=== PATIENT | male | born 1975 | race Caucasian/White ===

== ENCOUNTER 2025-10-05 00:42 | Outpatient (CLI) | payer OTHER, SELFPAY ==
[2025-10-05 12:09] LABS: HCT 46.2 % (40.0-50.0); HGB 16.3 g/dL (13.5-17.5); MCH 32.8 pg (27.0-33.0); MCHC 35.3 % (32.0-36.0); MCV 93 fL (80-95); MPV 11.0 fL (8.0-11.0); Platelet Count 211 10^3/uL (130-400); RBC 4.97 10^6/uL (4.36-5.78); RDW 12.1 % (11.8-14.1); RDW-SD 41.4 fL; WBC 6.84 10^3/uL (4.4-10.8)
== END 2025-10-05 00:43 | disposition home or self-care (01) ==
LOC: LBO 00:42 → LBN 11:59
PROVIDERS: PCP Family Medicine; Visit Provider Student in an Organized Health Care Education/Training Program
DX: M16.12 Unilateral primary osteoarthritis, left hip (principal); Z01.818 Encounter for other preprocedural examination
CPT/HCPCS: 80048; 85027

== ENCOUNTER 2025-10-05 11:19 | Outpatient (CLI) | payer OTHER, SELFPAY ==
--- NOTE | 2025-10-05 09:00 | DI.RAD_ITS ---
Exam(s) XR PELVIS AP EXAM: XR PELVIS AP CLINICAL HISTORY: PRE OP L PRAMOD. TECHNIQUE: 2D digital imaging was performed. Images were obtained. COMPARISON: RF XR HIP MIN 2V LT from 09/15/2024 FINDINGS: BONES: No acute fracture is present. No bony destructive lesion is seen. JOINTS: No dislocation present. In the left hip, there is marked asymmetric joint space narrowing particularly superiorly. Osteophytes are spine also present on the acetabulum and the femoral head. In the right hip, there is asymmetric joint space narrowing medially with small osteophytes also present. The sacroiliac joints are well maintained without evidence of ankylosis. The symphysis pubis is unremarkable. SOFT TISSUE: Normal. IMPRESSION: Marked osteoarthritis of the left hip and moderate osteoarthritis of the right hip. DATA REPOSITORY: RADIATION DOSE DELIVERED:
== END 2025-10-05 11:20 | disposition home or self-care (01) ==
LOC: DIORS 11:19
PROVIDERS: PCP Family Medicine; Visit Provider Physician Assistant
DX: M16.12 Unilateral primary osteoarthritis, left hip (principal)
CPT/HCPCS: 72170

== ENCOUNTER 2025-10-06 07:12 | Day surgery (SDC) | payer OTHER, SELFPAY ==
[2025-10-06] VITALS (22 sets, daily range): BP systolic 118–144; BP diastolic 71–87; PULSE 67–90; RESP 12–27; TEMP 36.1–37.1; O2SAT 93–98; BMI 36.3
--- NOTE | 2025-10-06 07:07 | W.PM.DSUDISC ---
Date of service: 10/06/25 Discharge Plan Disposition Patient Disposition: Home Condition: Good Discharge Details Reason For Visit: Left hip DJD Attending Provider: Curry Valdez Primary Care Provider: Jeff Rios Home Meds and New Rx's Prescriptions: New celecoxib [Celebrex] 200 mg capsule 200 mg PO BID PRNQty: 60 0RF Rx Instructions: Take one tablet twice daily for pain and inflammation aspirin 81 mg tablet,delayed release (DR/EC) 81 mg PO BID 30 Days Qty: 60 0RF acetaminophen 500 mg tablet 1,000 mg PO Q8H PRN Qty: 90 0RF Rx Instructions: Take two tablets up to every 8 hours as needed for pain pantoprazole 40 mg tablet,delayed release (DR/EC) 40 mg PO DAILY Qty: 14 0RF Rx Instructions: Take one tablet once daily dexamethasone 4 mg tablet 4 mg PO DAILY Qty: 2 0RF Rx Instructions: Take one tablet once daily for two days docusate sodium [Colace] 100 mg capsule 100 mg PO BID Qty: 28 0RF oxycodone 5 mg tablet 5 mg PO Q6H PRNQty: 6 0RF Rx Instructions: Take one tablet up to every 6 hours as needed for severe postoperative pain Discharge Instructions Additional Instructions: Total Hip Discharge Instructions Activity: The most important activity is to walk. You should try to take short walks a few times a day. You have no restrictions on movement or positioning, but do not try to force what you do. You will find some stiffness and weakness with hip flexion (lifting your knee). Do not try to strengthen this too early, continue to practice walking and stairs and this will come. - Outpatient physical therapy can be helpful to help return you to a normal gait and improve your flexibility and strength. This can start around 2 weeks. For some patients, it?s not necessary. Usually this is determined at the time of discharge or at the first post-operative visit. - You should wear the [place] hose on both legs for 2 weeks. Dressing: Keep the surgical dressing in place for at least one week. After the first week it may be removed and replace with light gauze and tape or nothing. It may get wet after 3 days but avoid soaking the dressing. If it gets wet, just lightly pat dry. It is important to always keep some gauze between skin folds, especially when you are sitting. Spend some time with the wound exposed when you are lying flat as the incision does wrinkle onto itself. Medications: - You should take Tylenol and an anti-inflammatory Celebrex as your primary pain control medications. If the Celebrex is too expensive or not covered, please call the office for another alternative (Advil/Ibuprofen or Naproxen/Aleve). - You have been prescribed a stronger pain medication Oxycodone for breakthrough pain, take as needed as prescribed. - You have also been prescribed a stomach acid reduction agent Pantoprozole to help reduce stomach acid and reflux. - You have also been prescribed Decadron to help with post-operative nausea and pain. You will take this for two days starting tomorrow. - You will be taking Aspirin 81mg twice a day for DVT prevention unless instructed otherwise. - If you have constipation you should take Colace (which has been prescribed) or Miralax (which is available [id number]). It takes most people 3-4 days to have a bowel movement. Follow-up: 2 weeks If you have any acute concerns or questions, please do not hesitate to contact the office at [phone]. You may contact Dr. Valdez with any questions after hours through the hospital at [phone] or on his cell phone at [phone]. Stand Alone Forms: Anesthesia Discharge Inst., Blake Salomon (U), Portal Information Referrals: Curry Valdez MD [ [facility] STAFF PHYSICIAN, Orthopaedic Surgical] - 10/19/25 11:15 am Equipment/Supplies: Walker Activity:: Elevate Remove Dressings/Wound Care:: Do Not Remove Shower/Bathe:: Cover Diet:: As Tolerated Discharge Orders Discharge Orders: Discharge Order (Routine); Ordered 10/06/25 Ordered By: Kimber Lopez
[2025-10-06] MEDS: Celecoxib 200 MG CAP 400 MG PO (07:48)
[2025-10-06] MEDS: Acetaminophen 500 MG TAB 1000 MG PO (07:49)
[2025-10-06] MEDS: Lactated Ringers 1,000 ML 80 ML IV (08:00)
--- NOTE | 2025-10-06 08:32 | W.ANESPRE ---
General Info Date of Service Date Performed: 10/06/25 Height: 6 ft Weight: 121.5 kg Body Mass Index (BMI): 36.3 Surgical Procedure: Operation Date: 10/06/25 09:05 Proposed Procedure Side Surgeon p Hip Total Hip Anterior Left Curry Valdez MD Meds Allergies and Home Medications Allergies Allergy/AdvReac Type Severity Reaction Status Date / Time No Known Allergies Allergy Verified 10/06/25 07:43 Home Medication ?Medication ?Instructions ?Recorded acetaminophen 500 mg tablet 1,000 mg (2 x 500 mg) PO Q8H PRN 10/06/25 pain #90 tabs aspirin 81 mg tablet,delayed 81 mg PO BID 30 days #60 tabs 10/06/25 release celecoxib 200 mg capsule (Celebrex) 200 mg PO BID PRN #60 caps 10/06/25 dexamethasone 4 mg tablet 4 mg PO DAILY #2 tabs 10/06/25 docusate sodium 100 mg capsule 100 mg PO BID #28 caps 10/06/25 (Colace) oxycodone 5 mg tablet 5 mg PO Q6H PRN #6 tabs 10/06/25 pantoprazole 40 mg tablet,delayed 40 mg PO DAILY #14 tabs 10/06/25 release Current Visit Medications: Current Medications Generic Name Dose Route Start Last Admin Trade Name Freq PRN Reason Stop Dose Admin Acetaminophen 1,000 mg 10/06/25 06:00 10/06/25 07:49 Acetaminophen 500 Mg Tab PO 10/06/25 23:59 1,000 mg PREOP JAIDEN Administration Celecoxib 400 mg 10/06/25 06:00 10/06/25 07:48 Celecoxib 200 Mg Cap PO 10/06/25 23:59 400 mg PREOP JAIDEN Administration Hydromorphone HCl 0.5 mg 10/06/25 07:05 Hydromorphone 2 Mg/Ml Syr IVP 11/05/25 07:04 Q2H PRN PRN Ringer's Solution 1,000 mls @ 80 mls/hr 10/06/25 06:00 10/06/25 08:00 IV 10/06/25 23:59 80 mls/hr INFUSION JAIDEN Administration Cefazolin Sodium/Dextrose 2 gm in 50 mls @ 100 mls/hr 10/06/25 06:00 Ancef Duplex IVPB 10/06/25 23:59 PREOP AJIDEN Tranexamic Acid/Sodium Chloride 1,000 mg in 100 mls @ 600 mls/hr 10/06/25 06:00 IVPB 10/06/25 23:59 PREOP JAIDEN Cefazolin Sodium/Dextrose 1 gm in 50 mls @ 100 mls/hr 10/06/25 08:00 Ancef Duplex IVPB 10/07/25 00:29 Q8H JAIDEN Oxycodone HCl 0 mg 10/06/25 07:05 Oxycodone 5 Mg Tab PO 11/05/25 07:04 Q3H PRN PRN Pain Sodium Chloride 0 ml 10/06/25 06:00 Normal Saline Flush 10 Ml Syr IV 10/06/25 23:59 PRN PRN Sodium Chloride 0 ml 10/06/25 06:00 Normal Saline 10 Ml Vial IJ 10/06/25 23:59 DIRECTED PRN Sterile Water 0 ml 10/06/25 06:00 Water,Injection,Sterile 10 Ml Vial IJ 10/06/25 23:59 DIRECTED PRN Tranexamic Acid 1,300 mg 10/06/25 07:05 Tranexamic Acid 650 Mg Tab PO 11/05/25 07:04 ONCE PRN postoperative PFSH Active Problems Active Problems: Problem Status Onset Code Trochanteric bursitis, left hip Acute M70.62 Osteoarthritis of left hip Chronic M16.12 CÉSAR (obstructive sleep apnea) Chronic G47.33 Obesity Chronic E66.9 GERD (gastroesophageal reflux disease) Chronic K21.9 Surgical History Surgical History History of vasectomy Tobacco Smoking/Tobacco Use Status: Never Passive smoking exposure: No Alcohol Alcohol Intake: current Alcohol intake frequency: 0-2 drinks per day Alcohol type: beer Substance Use Substance use: Never Substance use type: does not use Details: 10/05/25 - drank a couple of beers Vital Signs and Lab Results Vital Signs Most Recent Vital Signs in EMR: Most Recent Vital Signs Temp Pulse Resp BP Pulse Ox 36.7 C 76 18 131/84 98 10/06/25 07:34 10/06/25 07:34 10/06/25 07:34 10/06/25 07:34 10/06/25 07:34 Lab Results Complete Blood Count: WBC, (4.4-10.8) 6.84 10^3/uL 12/15/25, 09:35 RBC, (4.36-5.78) 4.97 10^6/uL 10/05/25, 09:35 Hgb, (13.5-17.5) 16.3 g/dL 10/05/25, 09:35 Hct, (40.0-50.0) 46.2 % 10/05/25, 09:35 Plt Count, (130-400) 211 10^3/uL 10/05/25, 09:35 Anesthesia Assessment and Plan Anesthesia History Personal History: No History of Anesthesia Complications Family History: No Family History of Anesthesia Complications Exercise Tolerance Exercise Tolerance: Metabolic Equivalents>4 Pertinent Negatives Pertinent Negatives: No Major Cardiovascular Symptoms or Complaints, No Major Pulmonary Symptoms or Complaints and No History of CVA/TIA Cardiac & Pulmonary Exam Cardiac Exam: Normal S1/S2 Heart Sounds Pulmonary Exam: Clear Bilateral Breath Sounds Implantable Cardiac Device Does patient have a Pacemaker or an ICD?: No Airway Exam Known Difficult Airway: No Mallampati Class: 3 Mouth Opening: Normal (> 3cm) Thyromental Distance: Greater than 3 cm Neck Range of Motion: Full ROM Neck Circumference: Normal Teeth Condition: Normal Dentition ASA Classification ASA Score: ASA 2 Emergency Case?: No NPO Status NPO Status: NPO Clears >2 hours, Solids >8 hours Anesthesia Plan Resuscitation Status: Full Code Anesthesia Technique: Spinal Anesthesia Airway Planned: Natural Airway Monitors Used: Standard Monitors
[2025-10-06] MEDS: ceFAZolin 2 GM/50 ML BAG IVPB (09:00)
--- NOTE | 2025-10-06 09:09 | ROE_ITS ---
Operative Note Operative Note PRE-OP DIAGNOSIS: Left Hip Osteoarthritis POST-OP DIAGNOSIS: same PROCEDURE: Left Anterior Total Hip Arthroplasty with Intraoperative Navigation SURGEON: Curry Valdez INDUSTRIAL EQUIPMENT MECHANIC: Kimber Lopez ANESTHESIA TYPE: Spinal Refer to Anesthesia Record ESTIMATED BLOOD LOSS: 200 PATHOLOGY: none sent TOURNIQUET TIME: 0 COMPLICATIONS: None Patient was transported to: PACU Patient's condition: stable Implants: 1. Depuy [place] Acetabular Component, 56mm 2. Depuy Acetabular Liner, 19x38an 3. Depuy Actis High Offset Collared Femoral Stem, Size 6 4. Depuy Altrx Ceramic Femoral Head, Size 36+5mm Indications: I have seen Leo in clinic for symptoms of hip arthritis, confirmed with radiographic findings. Leo has exhausted nonoperative methods and was having significant limitations in daily function and desired better function and less pain. I discussed the technical details of a hip replacement. I explained the risks of the procedure to include, but not limited to, bleeding, infection, pain, stiffness, fracture, damage to nerves and vessels, damage to muscles and tendons, loosening, instability, leg length inequality, need for repeat procedure, blood clot and cardiopulmonary demise. Despite these risks, Leo elected to proceed. Findings: There was significant signs of arthritis throughout the hip. Procedure Description: Leo was greeted in the preoperative holding area where the correct side was identified and marked. The consent was reviewed with the patient and signed. The history and physical was updated. All questions were answered. He was taken back to the operating room. A spinal anesthestic was then administered. The feet were wrapped with cast padding and Coban and then placed into the boot liners and then into the boots. Care was taken to protect the sk in and make sure the heels were fully down and the boots were stable. The patient was then positioned onto the HANA table. Both legs were held in a neutral position. SCDs were applied. The patient was then slid down onto a peroneal post. Prophylactic antibiotics in the form of Cefazolin were administered. 1g of Tranxemic Acid was given intravenously within 30 minutes of incision. The left leg was then prepped with Chloraprep and draped in a standard fashion. A second prep with Chloraprep was performed prior to placement of a shower-curtain type drape with Iodine impregnated skin prot ection. A timeout to confirm correct identity, side and site, procedure, allergies, anesthesia, and medical concerns was performed. An obliquely oriented incision was made starting lateral to the ASIS and running distal over the Tensor Fascia Melina (TFL) muscle belly toward the fibular head, approximately 10cm. The skin and soft tissue was dissected sharply, through Ruthy?s fascia, and to the fascia of the TFL. With the fascia and superior border of the IT band identified, the fascia was incised with a new knife just above any perforators from the IT band. The TFL muscle belly was bluntly dissected away from the fascia and moved laterally. The fat between TFL and rectus was identified to ensure the dissection was not within the TFL. Blunt dissection created space between abductors and the capsule and retractor was placed over the lateral femoral neck. The fibers of the rectus femoris tendon were identified and these were freed from the anterior capsule. A second cobra retractor was placed around the medial femoral neck. The TFL was further retracted laterally to show the deep fascia. Careful dissection through this layer identified three main crossing vessels of the lateral femoral circumflex. These were cauterized in multiple locations and then cut without any noticeable bleeding. The TFL was further released bluntly from the deep fascia to expose anterior hip capsule and fat The soft tissue orthopaedic retractor was then placed beneath the TFL and against sartorius and medial soft tissues to protect and retract the soft tissues. A T-capsulotomy was then performed starting at the superior lateral acetabulum and moving distally to the intertrochanteric ridge. These capsular flaps were tagged with a No. 1 Vicryl and elevated from within. The capsular flaps were released to the shoulder of the lateral neck and to the lesser trochanter to give excellent visualization of the proximal femur. A neck osteotomy was performed using an oscillating saw based on preoperative templates. This cut started in the shoulder and of the lateral neck and exited medially. The saw was at all times directed medially to avoid injury to the greater trochanter. Gross traction was applied to the leg and the osteotomy opened. The femoral head was removed with a corkscrew, making sure to protect the TFL on its exit. Traction was released after head removal. This was measured on the back table to determine the starting reamer size. Portions of the rectus obscuring visualization were minimally elevated off the superior acetabulum. An anterior retractor was placed over the anterior wall between capsule and labrum and attached to the Gripper retraction system. The femur was rotated to 90 degrees and medial capsule was fully released until the lesser trochanter was palpable and visible; the femur was returned to 30 degrees. A posterior retractor was placed similarly between capsule and labrum. This provided excellent visualization. The contents of the cotyloid fossa were removed with electrocautery and the labrum was removed with a knife. There was a notable floor osteophyte. There was significant chondromalacia of the superior acetabulum. Acetabular reaming began with a 51mm reamer. This first reaming was directed anterior to posterior and medial to get down to the true floor. This was inspected and reamed until the true floor was reached. The anterior retractor was then released and entry and exit was provided by traction on the capsular flaps. I then reamed sequentially up to a 56mm reamer where good fit was obtained. The larger reamers were oriented based on anatomical reference of the anterior and lateral bah to ensure proper abduction and anteversion. Positioning and size was confirmed with the fluoroscopy. A 56mm Depuy [place] acetabular component was selected. The acetabulum was reamed around the periphery with the selected acetabular size to prevent a rim fit. The deep tissues were irrigated. The acetabular component was then impacted in a position of about 40-45 degrees of abduction and 15-20 degrees of anteversion, using the patient?s anatomy as the ultimate landmark. Fluoroscopy was used to confirm this. There was excellent engineer of system development of the acetabular component and the inserting handle was removed. The acetabular liner, Depuy [id number] polyethylene liner, was inserted and lined up with the tines of the acetabular component. There was no soft tissue interposition. The liner was then impacted into position and confirmed to be well-seated. A portion of the jose-articular cocktail was then injected around the acetabulum into the capsule and periosteum. This cocktail consisted of 123mg of Ropivacaine, 0.25mg of Epinephrine, 0.04mg of Clonidine, and 15mg of Ketorolac, diluted to 50cc. The leg was rotated to 120 degrees. Any remaining medial capsule was released until the lesser trochanter was easily palpable. A retractor was placed medially. The lateral capsule was further released into the shoulder to allow access to the greater trochanter. A Yadav retractor was placed over the greater trochanter which allowed the trochanter to flip in front of the capsule for excellent exposure. The leg was brought down into maximal extension and 20 degrees of adduction while ensuring there was no impingement on the acetabulum. Any remnant capsule within the trochanter was released. Piriformis and obturator externis were identified and protected. There was excellent access to the proximal femur. The lateral neck remnant was removed with a rongeur. A blunt canal probe was used to identify the canal and trajectory for later broaching. A box osteotome initiated the broach course. A small curved rasp and a curved curette were used to work laterally. Broaching then began with a starter Actis broach. This was inserted manually around the trochanter and into the canal before mallet blows. The broach was seated to a few millimeters below the cut level based on the neck cut and the preoperative template. Sequential broaching was continued with the [employer] pneumatic broaching device until a tight fit was obtained with good rotational control of the femur. A trial high offset neck was inserted along with a +5 trial head. The leg was brought out of extension and adduction and then reduced with traction and internal rotation. The leg was stable anteriorly in a position of 30 degrees of extension and 90 degrees of external rotation. Fluoroscopy was used to ensure there was no fracture and the stem was seated well. Leg lengths were checked with an AP pelvis and pelvic reference points. LIFT12 navigation system was used to confirm appropriate positioning and leg length and offset. Once content with the desired offset and leg lengths, the leg was b rought back into extension, external rotation and adduction. The periosteum and surrounding tissue was injected with remaining portion of the jose-articular cocktail. The proximal femur was irrigated as well as the deep tissues. The Depuy Actis High Offset collared stem, size 6, was then manually inserted into the proximal femur making sure to control rotation. It was then malleted into position with light blows, giving breaks to allow bone expansion and decrease risk of fracture. The selected Depuy Altrx Ceramic Head, size 36+5mm, was then placed onto the clean and dry trunnion and secured with impaction onto the tapered fit. The leg was brought back out of extension and adduction and reduced with traction and internal rotation. Stability was confirmed with no shuck at 90 degrees of external rotation and 30 degrees of extension. No impingement through range of motion arc. Final x-ray images were obtained with fluoroscopy to confirm adequate positioning and no intraoperative fracture. The deep tissues were thoroughly irrigated with Surgiphor, betadine solution. This was allowed to sit in the wound for 3 minutes before being thoroughly irrigated out with normal saline. The capsule was then reapproximated with the previously placed sutures and the indirect head of the rectus was inspected and reapproximated with a #1 Vicryl. The TFL fascia was finally closed with a No. 2 Stratafix, barbed suture. Deep tissues were then reapproximated with 0 Vicryl and a running 2-0 Vicryl. The skin was closed with a running 4-0 Monocryl in a subcuticular fashion. This was reinforced with skin glue. A Mepilex silver dressing was applied. At the end of the case, all counts were correct. Leo was transferred to the hospital bed without difficulty and suffering no apparent complication. He has a good prognosis. Physical therapy will start today and without restrictions, weight-bearing as tolerated. Aspirin 81mg BID will be used for DVT prophylaxis. Date of Procedure: 10/06/25
[2025-10-06] MEDS: TRANEXAMIC ACID/SOD. CHL. 1,000 MG/100 ML BAG 600 MG IVPB (09:18)
[2025-10-06] MEDS: ROPIvacaine/EPI/CLONIDINE/KET 50 ML SYRINGE IJ (09:55)
--- NOTE | 2025-10-06 10:29 | DI.RAD_ITS ---
Exam(s) XR HIP LT IN OR EXAM: XR HIP LT IN OR CLINICAL HISTORY: DJD LEFT HIP TECHNIQUE: 2D and realtime digital imaging was performed. CONTRAST MATERIAL: Refer to procedure report. COMPARISON: CR XR PELVIS AP from 10/05/2025 FINDINGS: Fluoroscopy was provided for Dr. Valdez during the performance of a left total hip arthroplasty. Please refer to the procedure report for complete details. Ka,r=7.5 mGy IMPRESSION: RADIATION DOSE DELIVERED: 0.0 0.0 0
[2025-10-06] MEDS: HYDROmorphone 2 MG/ML SYR IVP (11:06)
[2025-10-06] MEDS: Tranexamic Acid 650 MG TAB 1300 MG PO (12:02)
[2025-10-06] MEDS: oxyCODONE 5 MG TAB PO (12:02)
--- NOTE | 2025-10-06 13:08 | IN_ITS ---
PT Notes Visit Reasons: Left hip DJD Physical Therapy Day Surgery Initial Evaluation Date: 10/06/2025 Referring Doctor: GILLIAN Hanson PT Orders: PT CONSULT: S/P Ortho surgery Precautions: WBAT through the left LE with AD. Patient Profile/Admitting Diagnosis: Zhang is a 50-year-old male with degenerative joint disease of the left hip and status post left anterior total hip arthroplasty on postoperative day 0. PMHX: All Active Problems Trochanteric bursitis, left hip (Acute) Osteoarthritis of left hip (Chronic) Intra-articular injection under ultrasound: 04/27/2025, 01/22/25 CÉSAR (obstructive sleep apnea) (Chronic) Obesity (Chronic) GERD (gastroesophageal reflux disease) (Chronic) Surgical History History of vasectomy Social History/Home Situation: Independent with all aspects of ADLs prior to surgery although has had increasing difficulty with mobility ADL performance due to worsening arthritis. Equipment Owned/DME: None Subjective: All dressed up and ready for a work out when PT arrived. Nurse Stout pre-medicated patient with Oxycodone and has woked well with patient. Objective: General Observation: Mepilex Ag over surgical incision. TEDS to be legs. Mental Status: A and O x 4 Pain: 1/10 in the L hip ROM: Right Lower Extremity: Hip flexion WFL. Hip abduction WFL. Knee flexion WFL. Ankle dorsiflexion WFL. Ankle plantarflexion WFL. Left Lower Extremity: Hip flexion WFL. Hip abduction WFL. Knee flexion WFL. Ankle dorsiflexion WFL. Ankle plantarflexion WFL. Strength: Right Lower Extremity: Hip flexors 5/5. Hip abductors 5/5. Knee flexors 5/5. Knee extensors 5/5. Ankle dorsiflexors 5/5. Ankle plantarflexors 5/5. Left Lower Extremity:Hip flexors 4/5. Hip abductors 4/5. Knee flexors 4/5. Knee extensors 4/5. Ankle dorsiflexors 5/5. Ankle plantarflexors 5/5. Sensation: Intact as to pain and light pressure in B LE Bed Mobility/Transfers: Minimal cueing provided for use of B hands as needed for support, movement sequence, AD management, and posture to reduce fall risk and minimize pain report Supine to sit standby assist with FWW Sit to stand contact guard assist with FWW Stand to sit stand by assist with FWW Bed to chair stand by assist with FWW Gait: Facilitate safe and correct performance of level surface ambulation covering a distance of 150 feet with step through heel-toe gait pattern requiring only standby assist and minimal verbal cueing for AD management, limb movement sequence, weight distribution, and posture to minimize pain report and reduce fall risk. Stairs: Guided patient with safe and correct negotiation of 2 x 6 inch steps and 3 x 4 inch steps while holding onto a rail and a single-point cane on the other side with step to gait pattern requiring only standby assist and minimal verbal cue ing for limb movement sequence, increased hip flexion on the left during each ascent, AD management, and posture to minimize pain report and reduce fall risk. Balance: Static Sitting: Normal Dynamic Sitting: Normal Static Standing: Fair Dynamic Standing: Fair Special Tests: Mobility Limitations Standardized Measure [facility] 6 clicks Basic Mobility Inpatient Short Form: Raw Score: 23 CMS Score: 11% deficit Informed Consent/Education: Patient instructed in purpose of PT consult. Packet containing PRAMOD exercise protocol has been given to patient. Education and training on initial set of exercises that can be done at home have been completed with patient. Trained patient with correct performance of exercises below to maximize motor control, joint flexibility, soft tissue extensibility of the L hip musculature to facilitate return to independent functional mobility performance. Access Code: [email or web address] URL: [email or web address] Date: 10/06/2025 Prepared by: Kayla Gamino Exercises - Gluteal Sets - 1 x daily - 7 x weekly - 1 sets - 10 reps - 5 hold - Supine Heel Slide - 1 x daily - 7 x weekly - 1 sets - 10 reps - 5 hold - Supine Ankle Pumps - 1 x daily - 7 x weekly - 1 sets - 10 reps - 5 hold - Seated March - 1 x daily - 7 x weekly - 1 sets - 10 reps - 5 hold - Seated Long Arc Quad - 1 x daily - 7 x weekly - 1 sets - 10 reps - 5 hold Assessment: Patient required the use of a front wheeled walker for all mobility ADL performance to maximize independence and reduce fall risk status post left left hip total arthroplasty. Patient presents with clinical signs and symptoms consistent with current/admitting diagnoses that have resulted to mobility limitations, gait instability, generalized weakness, and impairment of motor control as demonstrated by the following impairment level findings: 1. Decreased strength to left hip major muscle groups 2. Impaired standing balance Impairments are contributing to the following functional limitations: 1. Inability to safely ambulate without assistive device 2. Increase completion time for mobility ADL performance 3. Increased fall risk Patient is assessed as a 26192 moderate complexity based on the following: History: 50-year-old tachycardia with impairment level findings, functional limitations, and past medical history as indicated above Examination: Demonstrable impairment in strength, balance, and mobility level with underlying impairments and functional limitations as documented above Presentation: Evolving Decision Makin moderate complexity Goals: N/A. PT evaluation and 1-2 treatment sessions only for functional mobility training using recommended AD and for HEP instruction. Plan of Care/Treatment Plan: N/A. PT evaluation and 1-2 treatment session only for functional mobility training using recommended AD and for HEP instruction. DISCHARGE RECOMMENDATIONS: Home when medically cleared by orthopedic surgeon. Recommend outpatient PT services in order to optimize functional mobility outcomes and facilitate return to independent community ambulation without an assistive device. TREATMENT CODE/TIME: 54980 x 25 minutes for 1 unit (13:08?13:33). Thank you for the opportunity to participate in the care of this patient. Kayla Gamino PT, DPT, CLT [facility] [place], [place]
--- NOTE | 2025-10-06 13:49 | W.ANESPOSTOP ---
Postoperative Evaluation Date, Time and Location Date Performed: 10/06/25 Time Performed: 13:15 Patient Location: Day Surgery Unit Vital Signs Most Recent Imported Vital Signs: Most Recent Vital Signs Temp Pulse Resp BP Pulse Ox 36.1 C L 89 14 136/84 97 10/06/25 12:34 10/06/25 12:34 10/06/25 12:34 10/06/25 12:34 10/06/25 12:34 Pain Score Most Recent Pain Score: Most Recent Pain Score Pain Level 5 10/06/25 12:34 Assessment Mental Status: Awake (Alert & Oriented to Patient Baseline) Airway and Respiratory Function: Patent airway with normal (patient baseline) respiratory exam Cardiovascular Function: Hemodynamically Stable Hydration Status: Adequately Hydrated Nausea & Vomiting: No Nausea or Vomiting Pain: Pain is tolerable per patient Peripheral Nerve Block: Patient did not receive a nerve block
== END 2025-10-06 13:39 | disposition home or self-care (01) ==
LOC: SUR 07:12
PROVIDERS: PCP Family Medicine; Visit Provider Student in an Organized Health Care Education/Training Program
PROC: (CPT 27130; principal; 2025-10-06 08:45)
DX: M16.12 Unilateral primary osteoarthritis, left hip (principal)
CPT/HCPCS: 27130; 20985; 97162; 73501; C1776; J0690; J1100; J1171; J2250; J2401; J2405; J2704; J3010; J3475

== ENCOUNTER 2025-10-19 15:23 | Outpatient (CLI) | payer OTHER, SELFPAY ==
--- NOTE | 2025-10-19 11:00 | DI.RAD_ITS ---
Exam(s) XR HIP LT COMPLETE AP PELVIS EXAM: XR HIP LT COMPLETE AP PELVIS CLINICAL HISTORY: 1S POST OP S/P L PRAMOD. TECHNIQUE: 2D digital imaging was performed. COMPARISON: CR XR PELVIS AP from 10/05/2025 XA XR HIP LT IN OR from 10/06/2025 FINDINGS: Two views There is stable position alignment of the components of the recently placed left hip prosthesis. No fracture or loosening evident. Moderate degenerative changes in the opposite-right hip again noted. IMPRESSION: Stable satisfactory appearance of recently placed left hip prosthesis. DATA REPOSITORY: RADIATION DOSE DELIVERED:
== END 2025-10-19 15:24 | disposition home or self-care (01) ==
LOC: DIORS 15:23
PROVIDERS: PCP Family Medicine; Visit Provider Student in an Organized Health Care Education/Training Program
DX: Z96.642 Presence of left artificial hip joint (principal); M16.11 Unilateral primary osteoarthritis, right hip
CPT/HCPCS: 73502